=== PATIENT | female | born 1985 | race Caucasian/White ===

== ENCOUNTER 2023-11-04 12:37 | Emergency (ER) | payer OTHER ==
[~2023-11-04] VITALS: Ht 165.1 cm; Wt 75.7 kg
[2023-11-04] MEDS ORDERED: Acetaminophen/Oxycodone 5 MG/325 MG TABLET PO ONE (13:00)
[2023-11-04] MEDS ORDERED: TRAMADOL HCL50 MG PO (13:01)
== END 2023-11-04 13:04 | disposition home or self-care (01) ==
LOC: ED 12:37
DX: K64.4 Residual hemorrhoidal skin tags (principal); Z88.2 Allergy status to sulfonamides; Z88.8 Allergy status to other drugs, medicaments and biological substances

== ENCOUNTER 2023-12-05 19:04 | Emergency (ER) | payer OTHER ==
[~2023-12-05] VITALS: Ht 165.1 cm; Wt 74.8 kg
[~2023-12-05 19:04] MED LIST: TRAMADOL HCL50 MG PO
[2023-12-05] MEDS ORDERED: EFFEXOR XR75 M1 PO (19:15)
[2023-12-05] MEDS ORDERED: BUSPAR15 MG PO (19:16)
[2023-12-05] MEDS ORDERED: PENICILLIN VK500 MG PO (19:40)
== END 2023-12-05 19:45 | disposition home or self-care (01) ==
LOC: ED 19:04
DX: K02.9 Dental caries, unspecified (principal); F32.A Depression, unspecified; F41.9 Anxiety disorder, unspecified; Z88.2 Allergy status to sulfonamides; Z88.8 Allergy status to other drugs, medicaments and biological substances

== ENCOUNTER 2023-12-21 08:39 | Emergency (ER) | payer OTHER ==
[~2023-12-21] VITALS: Ht 165.1 cm; Wt 72.6 kg
[~2023-12-21 08:39] MED LIST changes: +BUSPAR15 MG PO; +EFFEXOR XR75 M1 PO; +PENICILLIN VK500 MG PO
[2023-12-21] MEDS ORDERED: Ketorolac Tromethamine 60 MG/2 ML VIAL IM ONE (08:50)
[2023-12-21] MEDS ORDERED: AMOXICILLIN500 M2 PO (09:15)
[2023-12-21] MEDS ORDERED: MELOXICAM15 MG PO (10:12)
== END 2023-12-21 10:15 | disposition home or self-care (01) ==
LOC: ED 08:39
DX: M25.562 Pain in left knee (principal); F32.A Depression, unspecified; F41.9 Anxiety disorder, unspecified; Z88.2 Allergy status to sulfonamides; Z88.8 Allergy status to other drugs, medicaments and biological substances

== ENCOUNTER 2024-01-05 18:18 | Emergency (ER) | payer OTHER ==
[~2024-01-05] VITALS: Ht 165.1 cm; Wt 74.4 kg
[~2024-01-05 18:18] MED LIST changes: +AMOXICILLIN500 M2 PO; +MELOXICAM15 MG PO
[2024-01-05 19:05] LABS: BILIRUBIN Negative (Negative); BLOOD Negative (Negative); CLARITY Clear (Clear); COLOR Yellow (Yellow); GLUCOSE Negative (Negative); KETONE Negative (Negative); LEUKO ESTERASE Negative (Negative); NITRITE Negative (Negative); PH 5.5 (4.5-8.0); SPECIFIC GRAVITY <= 1.005 (1.001-1.030); UROBILINOGEN 0.2 E.U./dl (0.0-1.0)
[2024-01-05 19:15] LABS: WBC 0-2 wbc/hpf (0-5)
[2024-01-05 19:28] LABS: BASO % 0.7 % (0.0-1.0); EOS % 0.3 % (1.0-4.0); HEMATOCRIT 40.6 % (37.0-47.0); LYMPH # 0.9 10*3/uL (1.3-4.4); LYMPH % 15.5 % (27.0-41.0); MEAN CELL VOLUME 86.6 fl (81.0-99.0); MEAN CORPUSCULAR HGB 30.3 pg (27.0-31.0); MEAN PLATELET VOLUME 9.5 fl (9.6-12.3); MONO # 0.5 10*3/uL (0.1-1.0); MONO % 8.6 % (3.0-9.0); NEUT # 4.5 10*3/uL (2.3-7.9); NEUT % 74.6 % (47.0-73.0); PLATELET COUNT AUTOMATED 209 10*3/uL (130-400); RED BLOOD COUNT 4.69 10*6/uL (4.10-5.10); RED CELL DISTRI WIDTH 12.2 % (0-14.5); WHITE BLOOD COUNT 6.1 10*3/uL (4.8-10.8)
[2024-01-05 19:42] LABS: BUN 11 mg/dl (9-23); CHLORIDE 108 mmol/L (98-107); POTASSIUM 3.4 mmol/L (3.4-5.1)
[2024-01-05] MEDS ORDERED: NYSTATIN OINTMENT 15 GM TUBE T ONE (19:55)
[2024-01-05] MEDS ORDERED: CLOTRIMAZOLE 45 GM TUBE V ONE (19:55)
[2024-01-05] MEDS ORDERED: CLOTRIMAZOLE 321 GM V (19:58)
== END 2024-01-05 20:11 | disposition home or self-care (01) ==
LOC: ED 18:18
PROVIDERS: Nurse Practitioner Family
DX: B37.31 Acute candidiasis of vulva and vagina (principal); Z88.2 Allergy status to sulfonamides; Z88.8 Allergy status to other drugs, medicaments and biological substances; Z88.1 Allergy status to other antibiotic agents; Z79.899 Other long term (current) drug therapy; Z79.2 Long term (current) use of antibiotics

== ENCOUNTER 2024-01-18 13:07 | Emergency (ER) | payer OTHER ==
[~2024-01-18] VITALS: Ht 165.1 cm; Wt 73.0 kg
[~2024-01-18 13:07] MED LIST changes: +CLOTRIMAZOLE 321 GM V
[2024-01-18] MEDS ORDERED: PENICILLIN VK500 MG PO (13:34)
== END 2024-01-18 13:38 | disposition home or self-care (01) ==
LOC: ED 13:07
DX: K08.89 Other specified disorders of teeth and supporting structures (principal); Z88.2 Allergy status to sulfonamides; Z88.8 Allergy status to other drugs, medicaments and biological substances; Z88.1 Allergy status to other antibiotic agents; Z79.899 Other long term (current) drug therapy

== ENCOUNTER 2024-02-04 18:38 | Emergency (ER) | payer OTHER ==
[~2024-02-04] VITALS: Ht 165.1 cm; Wt 73.9 kg
[2024-02-04] MEDS ORDERED: PROAIR RESPICL90 MCG INH (19:15)
[2024-02-04] MEDS ORDERED: FLONASE ALLERG9.9 ML NAS (19:15)
[2024-02-04] MEDS ORDERED: diphenhydrAMINE hydrochloride 50 MG/ML VIAL IV ONE (21:20)
[2024-02-04] MEDS ORDERED: Ketorolac Tromethamine 30 MG/ML VIAL IV ONE (21:20)
[2024-02-04] MEDS ORDERED: Ondansetron Hydrochloride 4 MG/2 ML VIAL IV ONE (21:20)
[2024-02-04] MEDS ORDERED: SODIUM CHLORIDE 0.9% 1,000 ML IV ONE (21:20)
== END 2024-02-04 23:13 | disposition home or self-care (01) ==
LOC: ED 18:38
DX: R51.9 Headache, unspecified (principal); K02.9 Dental caries, unspecified; F32.A Depression, unspecified; F41.9 Anxiety disorder, unspecified; Z88.2 Allergy status to sulfonamides; Z88.8 Allergy status to other drugs, medicaments and biological substances; Z98.890 Other specified postprocedural states

== ENCOUNTER → 2024-02-11 | Emergency (ER) | payer OTHER ==
[~2024-02-11] VITALS: Ht 165.1 cm; Wt 72.6 kg
[~2024-02-11] MED LIST changes: +FLONASE ALLERG9.9 ML NAS; +PROAIR RESPICL90 MCG INH
[2024-02-11 14:38] LABS: BILIRUBIN Negative (Negative); BLOOD Negative (Negative); CLARITY Clear (Clear); COLOR Yellow (Yellow); GLUCOSE Negative (Negative); KETONE Negative (Negative); LEUKO ESTERASE Negative (Negative); NITRITE Negative (Negative); PH 6.5 (4.5-8.0); UROBILINOGEN 0.2 E.U./dl (0.0-1.0)
[2024-02-11 14:48] LABS: RBC 0-2 rbc/hpf (0-2); WBC 0-2 wbc/hpf (0-5)
[2024-02-11 15:40] LABS: BASO # 0.1 10*3/uL (0.0-0.1); EOS % 0.5 % (1.0-4.0); HEMATOCRIT 41.7 % (37.0-47.0); LYMPH # 1.7 10*3/uL (1.3-4.4); MEAN CELL VOLUME 89.5 fl (81.0-99.0); MEAN CORPUSCULAR HGB 30.9 pg (27.0-31.0); MEAN CORPUSCULAR HGB CONC 34.5 g/dl (33.0-37.0); MEAN PLATELET VOLUME 9.6 fl (9.6-12.3); MONO # 0.7 10*3/uL (0.1-1.0); MONO % 12.1 % (3.0-9.0); NEUT # 3.3 10*3/uL (2.3-7.9); NEUT % 56.9 % (47.0-73.0); PLATELET COUNT AUTOMATED 211 10*3/uL (130-400); RED BLOOD COUNT 4.66 10*6/uL (4.10-5.10); RED CELL DISTRI WIDTH 12.2 % (0-14.5); WHITE BLOOD COUNT 5.7 10*3/uL (4.8-10.8)
[2024-02-11 15:58] LABS: ALKALINE PHOSPHATASE 60 U/L (46-116); BUN 15 mg/dl (9-23); CHLORIDE 105 mmol/L (98-107); LIPASE 31 U/L (12-53); POTASSIUM 4.1 mmol/L (3.4-5.1); SGPT/ALT 19 U/L (5-49); TOTAL PROTEIN 6.9 gm/dL (6.0-8.0)
[2024-02-11 15:59] LABS: BETA-HCG, QUANT < 3.0 mIU/mL (3-10)
== END ==
LOC: ED 13:17
PROVIDERS: Internal Medicine; Physician Assistant Medical
DX: R10.9 Unspecified abdominal pain (principal); R30.9 Painful micturition, unspecified; R11.0 Nausea; F32.A Depression, unspecified; F41.9 Anxiety disorder, unspecified; Z88.2 Allergy status to sulfonamides; Z88.8 Allergy status to other drugs, medicaments and biological substances; Z98.890 Other specified postprocedural states

== ENCOUNTER 2024-04-13 21:28 | Emergency (ER) | payer OTHER ==
[2024-04-13] MEDS ORDERED: AZITHROMYCIN 250 MG TAB PO ONE (21:50)
[2024-04-13] MEDS ORDERED: BENZONATATE 100 MG CAP PO ONE (21:50)
[2024-04-13] MEDS ORDERED: BENZONATATE100 M1 PO (21:53)
[2024-04-13] MEDS ORDERED: ZITHROMAX250 MG PO (21:53)
== END 2024-04-13 22:09 | disposition home or self-care (01) ==
LOC: ED 21:28
DX: J98.4 Other disorders of lung (principal); F32.A Depression, unspecified; F41.9 Anxiety disorder, unspecified; Z88.2 Allergy status to sulfonamides; Z88.1 Allergy status to other antibiotic agents; Z88.8 Allergy status to other drugs, medicaments and biological substances; Z98.890 Other specified postprocedural states

== ENCOUNTER 2024-05-16 14:59 | Emergency (ER) | payer OTHER ==
[~2024-05-16] VITALS: Ht 165.1 cm; Wt 75.7 kg
[~2024-05-16 14:59] MED LIST changes: +BENZONATATE100 M1 PO; +ZITHROMAX250 MG PO
[2024-05-16] MEDS ORDERED: VENLAFAXINE HY150 M2 PO (15:15)
[2024-05-16 16:34] LABS: BASO % 0.3 % (0.0-1.0); EOS # 0.1 10*3/uL (0.0-0.4); EOS % 1.4 % (1.0-4.0); HEMATOCRIT 39.4 % (37.0-47.0); LYMPH # 1.3 10*3/uL (1.3-4.4); LYMPH % 22.8 % (27.0-41.0); MEAN CELL VOLUME 86.6 fl (81.0-99.0); MEAN CORPUSCULAR HGB 30.1 pg (27.0-31.0); MEAN CORPUSCULAR HGB CONC 34.8 g/dl (33.0-37.0); MEAN PLATELET VOLUME 9.7 fl (9.6-12.3); MONO # 0.5 10*3/uL (0.1-1.0); MONO % 8.9 % (3.0-9.0); NEUT # 3.9 10*3/uL (2.3-7.9); NEUT % 66.3 % (47.0-73.0); PLATELET COUNT AUTOMATED 212 10*3/uL (130-400); RED BLOOD COUNT 4.55 10*6/uL (4.10-5.10); RED CELL DISTRI WIDTH 11.9 % (0-14.5); WHITE BLOOD COUNT 5.8 10*3/uL (4.8-10.8)
[2024-05-16 16:55] LABS: ALKALINE PHOSPHATASE 69 U/L (46-116); BUN 12 mg/dl (9-23); CHLORIDE 106 mmol/L (98-107); LIPASE 36 U/L (12-53); POTASSIUM 3.9 mmol/L (3.4-5.1); SGPT/ALT 20 U/L (5-49); TOTAL PROTEIN 6.8 gm/dL (6.0-8.0)
[2024-05-16 17:32] LABS: BILIRUBIN Negative (Negative); BLOOD Negative (Negative); CLARITY Clear (Clear); COLOR Yellow (Yellow); GLUCOSE Negative (Negative); KETONE Negative (Negative); LEUKO ESTERASE Negative (Negative); NITRITE Negative (Negative); PH 7.5 (4.5-8.0); SPECIFIC GRAVITY 1.015 (1.001-1.030); UROBILINOGEN 0.2 E.U./dl (0.0-1.0)
[2024-05-16 17:46] LABS: BACTERIA TRACE
[2024-05-16 17:47] LABS: RBC 0-2 rbc/hpf (0-2); WBC 0-2 wbc/hpf (0-5)
[2024-05-16] MEDS ORDERED: Ketorolac Tromethamine 60 MG/2 ML VIAL IM ONE (18:25)
== END 2024-05-16 18:30 | disposition home or self-care (01) ==
LOC: ED 14:59
PROVIDERS: Nurse Practitioner Family
DX: K82.9 Disease of gallbladder, unspecified (principal); R11.0 Nausea; F32.A Depression, unspecified; F41.9 Anxiety disorder, unspecified; Z88.2 Allergy status to sulfonamides; Z88.1 Allergy status to other antibiotic agents; Z88.8 Allergy status to other drugs, medicaments and biological substances; Z98.890 Other specified postprocedural states

== ENCOUNTER 2024-06-27 18:25 | Emergency (ER) | payer OTHER ==
[~2024-06-27] VITALS: Ht 165.1 cm; Wt 81.2 kg
[~2024-06-27 18:25] MED LIST changes: +VENLAFAXINE HY150 M2 PO
[2024-06-27] MEDS ORDERED: Amoxicillin/Clavulanate Pota 875 MG TAB PO ONE (18:40)
[2024-06-27] MEDS ORDERED: AMOX-CLAV 875-1 EACH PO (18:42)
== END 2024-06-27 18:44 | disposition home or self-care (01) ==
LOC: ED 18:25
DX: K04.7 Periapical abscess without sinus (principal); R22.0 Localized swelling, mass and lump, head; F32.A Depression, unspecified; F41.9 Anxiety disorder, unspecified; Z88.2 Allergy status to sulfonamides; Z88.1 Allergy status to other antibiotic agents; Z88.8 Allergy status to other drugs, medicaments and biological substances

== ENCOUNTER 2024-07-11 05:31 | Emergency (ER) | payer OTHER ==
[~2024-07-11] VITALS: Ht 165.1 cm; Wt 81.6 kg
[~2024-07-11 05:31] MED LIST changes: +AMOX-CLAV 875-1 EACH PO
[2024-07-11 06:39] LABS: BASO # 0.1 10*3/uL (0.0-0.1); EOS # 0.1 10*3/uL (0.0-0.4); EOS % 1.8 % (1.0-4.0); HEMATOCRIT 42.5 % (37.0-47.0); MEAN CELL VOLUME 87.8 fl (81.0-99.0); MEAN CORPUSCULAR HGB 30.2 pg (27.0-31.0); MEAN CORPUSCULAR HGB CONC 34.4 g/dl (33.0-37.0); MEAN PLATELET VOLUME 9.7 fl (9.6-12.3); MONO # 0.5 10*3/uL (0.1-1.0); MONO % 10.1 % (3.0-9.0); NEUT # 2.8 10*3/uL (2.3-7.9); NEUT % 56.1 % (47.0-73.0); PLATELET COUNT AUTOMATED 222 10*3/uL (130-400); RED BLOOD COUNT 4.84 10*6/uL (4.10-5.10); RED CELL DISTRI WIDTH 11.9 % (0-14.5); WHITE BLOOD COUNT 5.1 10*3/uL (4.8-10.8)
[2024-07-11 06:53] LABS: BUN 17 mg/dl (9-23); CHLORIDE 106 mmol/L (98-107)
== END 2024-07-11 07:09 | disposition home or self-care (01) ==
LOC: ED 05:31
PROVIDERS: Emergency Medicine
DX: F41.9 Anxiety disorder, unspecified (principal); R42 Dizziness and giddiness; F32.A Depression, unspecified; Z88.2 Allergy status to sulfonamides; Z88.1 Allergy status to other antibiotic agents; Z88.8 Allergy status to other drugs, medicaments and biological substances

== ENCOUNTER 2024-11-16 16:01 | Emergency (ER) | payer OTHER ==
[~2024-11-16] VITALS: Ht 165.1 cm; Wt 84.4 kg
[2024-11-16 16:55] LABS: BASO # 0.1 10*3/uL (0.0-0.1); BASO % 0.7 % (0.0-1.0); EOS # 0.1 10*3/uL (0.0-0.4); EOS % 1.6 % (1.0-4.0); HEMATOCRIT 41.3 % (37.0-47.0); MEAN CELL VOLUME 85.7 fl (81.0-99.0); MEAN CORPUSCULAR HGB 29.5 pg (27.0-31.0); MEAN CORPUSCULAR HGB CONC 34.4 g/dl (33.0-37.0); MONO # 0.6 10*3/uL (0.1-1.0); MONO % 8.6 % (3.0-9.0); NEUT # 4.9 10*3/uL (2.3-7.9); NEUT % 69.8 % (47.0-73.0); PLATELET COUNT AUTOMATED 218 10*3/uL (130-400); RED BLOOD COUNT 4.82 10*6/uL (4.10-5.10); RED CELL DISTRI WIDTH 12.6 % (0-14.5)
[2024-11-16 17:14] LABS: BUN 18 mg/dl (9-23); CHLORIDE 105 mmol/L (98-107)
[2024-11-16] MEDS ORDERED: BROMFED DM COU118 M2 PO (18:27)
[2024-11-16] MEDS ORDERED: VIBRAMYCIN100 MG PO (18:27)
[2024-11-16] MEDS ORDERED: Doxycycline Hyclate 100 MG TAB PO ONE (18:30)
== END 2024-11-16 18:37 | disposition home or self-care (01) ==
LOC: ED 16:01
PROVIDERS: Nurse Practitioner Family
DX: J98.4 Other disorders of lung (principal); Z20.822 Contact with and (suspected) exposure to COVID-19; Z88.2 Allergy status to sulfonamides; Z88.8 Allergy status to other drugs, medicaments and biological substances; Z88.1 Allergy status to other antibiotic agents; Z79.899 Other long term (current) drug therapy

== ENCOUNTER 2025-03-06 06:31 | Emergency (ER) | payer OTHER ==
[~2025-03-06 06:31] MED LIST changes: +BROMFED DM COU118 M2 PO; +VIBRAMYCIN100 MG PO
[2025-03-06] MEDS ORDERED: Venlafaxine Hydrochloride 75 MG CAP PO ONE (06:55)
== END 2025-03-06 07:07 | disposition home or self-care (01) ==
LOC: ED 06:31
DX: F41.9 Anxiety disorder, unspecified (principal); Z76.0 Encounter for issue of repeat prescription; Z88.2 Allergy status to sulfonamides; Z88.8 Allergy status to other drugs, medicaments and biological substances; Z88.1 Allergy status to other antibiotic agents; Z79.899 Other long term (current) drug therapy

== ENCOUNTER 2025-03-08 11:14 | Emergency (ER) | payer OTHER ==
[~2025-03-08] VITALS: Ht 165.1 cm; Wt 72.6 kg
[2025-03-08] MEDS ORDERED: Albuterol Sulf/Ipratropium 3 ML VIAL NEB ONE (11:40)
[2025-03-08] MEDS ORDERED: AMOX-CLAV 875-1 EACH PO (13:48)
[2025-03-08] MEDS ORDERED: SINGULAIR10 M1 PO (13:48)
[2025-03-08] MEDS ORDERED: BENZONATATE150 MG PO (13:51)
== END 2025-03-08 13:55 | disposition home or self-care (01) ==
LOC: ED 11:14
DX: J45.909 Unspecified asthma, uncomplicated (principal); F41.9 Anxiety disorder, unspecified; F32.A Depression, unspecified; G89.29 Other chronic pain; Z88.2 Allergy status to sulfonamides; Z88.8 Allergy status to other drugs, medicaments and biological substances; Z88.1 Allergy status to other antibiotic agents; Z79.899 Other long term (current) drug therapy

== ENCOUNTER 2025-04-26 11:57 | Emergency (ER) | payer OTHER ==
[~2025-04-26] VITALS: Ht 165.1 cm; Wt 77.1 kg
[~2025-04-26 11:57] MED LIST changes: +BENZONATATE150 MG PO; +SINGULAIR10 M1 PO
[2025-04-26] MEDS ORDERED: Ondansetron Hydrochloride 4 MG/2 ML VIAL IV ONE (12:20)
[2025-04-26] MEDS ORDERED: SODIUM CHLORIDE 0.9% 500 ML IV ONE (12:20)
[2025-04-26 12:49] LABS: BASO # 0.0 10*3/uL (0.0-0.1); BASO % 0.7 % (0.0-1.0); EOS # 0.1 10*3/uL (0.0-0.4); EOS % 2.3 % (1.0-4.0); MEAN CELL VOLUME 86.3 fl (81.0-99.0); MEAN CORPUSCULAR HGB 29.1 pg (27.0-31.0); MEAN PLATELET VOLUME 9.9 fl (9.6-12.3); MONO # 0.5 10*3/uL (0.1-1.0); MONO % 12.0 % (3.0-9.0); NEUT # 2.7 10*3/uL (2.3-7.9); NEUT % 60.6 % (47.0-73.0); NUCLEATED RED BLOOD CELL 0.0 % (0.0-0.0); NUCLEATED RED BLOOD CELL 0.0 10*3/uL (0.0-0.0); PLATELET COUNT AUTOMATED 208 10*3/uL (130-400); RED CELL DISTRI WIDTH 12.6 % (0-14.5)
[2025-04-26 13:10] LABS: BUN 16 mg/dl (9-23); SGPT/ALT 27 U/L (5-49)
[2025-04-26 13:22] LABS: BILIRUBIN Negative (Negative); BLOOD 3+ (Negative); CLARITY Clear (Clear); COLOR Yellow (Yellow); KETONE Negative (Negative); LEUKO ESTERASE Negative (Negative); NITRITE Negative (Negative); PH 6.0 (4.5-8.0); SPECIFIC GRAVITY 1.025 (1.001-1.030); UROBILINOGEN 0.2 E.U./dl (0.0-1.0)
[2025-04-26 13:31] LABS: BACTERIA TRACE; MUCOUS TRACE; RBC 51-100 rbc/hpf (0-2); WBC 0-2 wbc/hpf (0-5)
[2025-04-26] MEDS ORDERED: Ondansetron4 MG PO (14:36)
[2025-04-26] MEDS ORDERED: FLOMAX0.4 MG PO (14:36)
[2025-04-26] MEDS ORDERED: PERCOCET 5-3251 EACH PO (14:36)
== END 2025-04-26 14:48 | disposition home or self-care (01) ==
LOC: ED 11:57
PROVIDERS: Emergency Medicine
DX: N20.1 Calculus of ureter (principal); R10.12 Left upper quadrant pain; R11.0 Nausea; Z88.2 Allergy status to sulfonamides; Z88.8 Allergy status to other drugs, medicaments and biological substances; Z88.1 Allergy status to other antibiotic agents; Z79.899 Other long term (current) drug therapy

== ENCOUNTER 2025-05-31 16:43 | Emergency (ER) | payer OTHER ==
[~2025-05-31] VITALS: Ht 165.1 cm; Wt 81.6 kg
[~2025-05-31 16:43] MED LIST changes: +FLOMAX0.4 MG PO; +Ondansetron4 MG PO; +PERCOCET 5-3251 EACH PO
[2025-05-31] MEDS ORDERED: SODIUM CHLORIDE 0.9% 1,000 ML IV ONE (16:55)
[2025-05-31] MEDS ORDERED: Midazolam Hydrochloride 2 MG/2 ML VIAL IV ONE (17:00)
[2025-05-31] MEDS ORDERED: FAMOTIDINE 50 ML IV ONE (17:00)
[2025-05-31 17:10] LABS: BASO # 0.1 10*3/uL (0.0-0.1); BASO % 0.9 % (0.0-1.0); EOS # 0.1 10*3/uL (0.0-0.4); EOS % 1.7 % (1.0-4.0); MEAN CELL VOLUME 85.8 fl (81.0-99.0); MEAN CORPUSCULAR HGB 29.0 pg (27.0-31.0); MEAN PLATELET VOLUME 10.1 fl (9.6-12.3); MONO # 0.6 10*3/uL (0.1-1.0); MONO % 8.9 % (3.0-9.0); NEUT # 4.4 10*3/uL (2.3-7.9); NEUT % 61.9 % (47.0-73.0); NUCLEATED RED BLOOD CELL 0.0 % (0.0-0.0); NUCLEATED RED BLOOD CELL 0.0 10*3/uL (0.0-0.0); PLATELET COUNT AUTOMATED 230 10*3/uL (130-400); RED CELL DISTRI WIDTH 11.9 % (0-14.5)
[2025-05-31 17:21] LABS: ACT PARTIAL THROMBO TIME 26.1 SECONDS (20.0-32.1)
[2025-05-31 18:25] LABS: BUN 11 mg/dl (9-23)
[2025-05-31 18:36] LABS: ETHYL ALCOHOL < 3.0 mg/dl (<3)
[2025-05-31 19:27] LABS: BILIRUBIN Negative (Negative); BLOOD Negative (Negative); CLARITY Clear (Clear); COLOR Yellow (Yellow); KETONE Negative (Negative); LEUKO ESTERASE Negative (Negative); NITRITE Negative (Negative); PH 7.5 (4.5-8.0); SPECIFIC GRAVITY <= 1.005 (1.001-1.030); UROBILINOGEN 0.2 E.U./dl (0.0-1.0)
[2025-05-31 19:34] LABS: URINE AMPHETAMINES Negative (1000ng/ml); URINE BARBITURATES Negative (200ng/ml); URINE BENZODIAZEPINES Positive (200ng/ml); URINE CANNABINOIDS (THC) Negative (50ng/ml); URINE COCAINE Negative (300ng/ml); URINE METHADONE Negative (300ng/ml); URINE OPIATES Negative (300ng/ml); URINE PHENCYCLIDINE Negative (25ng/ml)
[2025-05-31 19:40] LABS: EPITHELIAL CELLS 0-2; WBC 0-2 wbc/hpf (0-5)
== END 2025-05-31 22:42 | disposition home or self-care (01) ==
LOC: ED 16:43
PROVIDERS: Internal Medicine
DX: K82.8 Other specified diseases of gallbladder (principal); K21.9 Gastro-esophageal reflux disease without esophagitis; Z88.2 Allergy status to sulfonamides; Z88.8 Allergy status to other drugs, medicaments and biological substances; Z88.1 Allergy status to other antibiotic agents; Z79.899 Other long term (current) drug therapy

== ENCOUNTER 2025-06-10 07:08 | Emergency (ER) | payer OTHER ==
[~2025-06-10] VITALS: Ht 170.1 cm; Wt 83.0 kg
[2025-06-10] MEDS ORDERED: DOXYCYCLINE HY100 M3 PO (07:13)
[2025-06-10] MEDS ORDERED: IBUPROFEN 800 MG TAB PO ONE (07:20)
[2025-06-10] MEDS ORDERED: MELOXICAM15 MG PO (07:58)
[2025-06-10] MEDS ORDERED: CYCLOBENZAPRINE10 MG PO (07:58)
== END 2025-06-10 08:06 | disposition home or self-care (01) ==
LOC: ED 07:08
DX: S09.90XA Unspecified injury of head, initial encounter (principal); M54.50 Low back pain, unspecified; F41.9 Anxiety disorder, unspecified; F32.A Depression, unspecified; M79.7 Fibromyalgia; Z88.2 Allergy status to sulfonamides; Z88.1 Allergy status to other antibiotic agents; V49.9XXA Car occupant (driver) (passenger) injured in unspecified traffic accident, initial encounter; Y93.89 Activity, other specified; Y92.410 Unspecified street and highway as the place of occurrence of the external cause; Y99.8 Other external cause status

== ENCOUNTER 2025-07-16 05:03 | Emergency (ER) | payer OTHER ==
[~2025-07-16] VITALS: Ht 165.1 cm; Wt 84.8 kg
[~2025-07-16 05:03] MED LIST changes: +CYCLOBENZAPRINE10 MG PO; +DOXYCYCLINE HY100 M3 PO
[2025-07-16] MEDS ORDERED: Dexamethasone Sodium Phospha 4 MG/ML VIAL IM ONE (05:50)
[2025-07-16] MEDS ORDERED: Ondansetron Hydrochloride 4 MG TAB SL ONE (05:50)
[2025-07-16] MEDS ORDERED: Cyclobenzaprine Hydrochlorid 10 MG TAB PO ONE (05:50)
[2025-07-16] MEDS ORDERED: CYCLOBENZAPRINE10 MG PO (07:00)
== END 2025-07-16 07:06 | disposition home or self-care (01) ==
LOC: ED 05:03
DX: M54.42 Lumbago with sciatica, left side (principal); F41.9 Anxiety disorder, unspecified; Z88.2 Allergy status to sulfonamides; Z88.8 Allergy status to other drugs, medicaments and biological substances; Z88.1 Allergy status to other antibiotic agents; Z79.899 Other long term (current) drug therapy

== ENCOUNTER 2025-08-18 10:11 | Emergency (ER) | payer OTHER ==
[2025-08-18] MEDS ORDERED: Ondansetron Hydrochloride 4 MG/2 ML VIAL IV ONE (10:35)
[2025-08-18 10:54] LABS: BASO # 0.0 10*3/uL (0.0-0.1); BASO % 0.7 % (0.0-1.0); EOS # 0.1 10*3/uL (0.0-0.4); EOS % 2.4 % (1.0-4.0); MEAN CELL VOLUME 85.6 fl (81.0-99.0); MEAN CORPUSCULAR HGB 29.7 pg (27.0-31.0); MEAN PLATELET VOLUME 9.6 fl (9.6-12.3); MONO # 0.3 10*3/uL (0.1-1.0); MONO % 7.6 % (3.0-9.0); NEUT # 2.8 10*3/uL (2.3-7.9); NEUT % 66.1 % (47.0-73.0); NUCLEATED RED BLOOD CELL 0.0 % (0.0-0.0); NUCLEATED RED BLOOD CELL 0.0 10*3/uL (0.0-0.0); PLATELET COUNT AUTOMATED 193 10*3/uL (130-400); RED CELL DISTRI WIDTH 12.0 % (0-14.5)
[2025-08-18 11:20] LABS: BUN 12 mg/dl (9-23); SGPT/ALT 19 U/L (5-49)
[2025-08-18 11:30] LABS: BILIRUBIN Negative (Negative); BLOOD 2+ (Negative); CLARITY Clear (Clear); COLOR Yellow (Yellow); KETONE Negative (Negative); LEUKO ESTERASE Negative (Negative); NITRITE Negative (Negative); PH 7.0 (4.5-8.0); SPECIFIC GRAVITY 1.020 (1.001-1.030); UROBILINOGEN 0.2 E.U./dl (0.0-1.0)
[2025-08-18] MEDS ORDERED: VENT7GM INH (11:35)
[2025-08-18 11:40] LABS: BACTERIA 1+; EPITHELIAL CELLS 21-30; MUCOUS TRACE; WBC 0-2 wbc/hpf (0-5)
[2025-08-18] MEDS ORDERED: MIRALAX POWDER17 G1 PO (12:22)
[2025-08-18] MEDS ORDERED: COLACE100 MG PO (12:22)
== END 2025-08-18 12:31 | disposition home or self-care (01) ==
LOC: ED 10:11
PROVIDERS: Emergency Medicine
DX: R07.89 Other chest pain (principal); R05.9 Cough, unspecified; R10.11 Right upper quadrant pain; R10.13 Epigastric pain; M25.511 Pain in right shoulder; K59.00 Constipation, unspecified; Z88.2 Allergy status to sulfonamides; Z88.8 Allergy status to other drugs, medicaments and biological substances; Z88.1 Allergy status to other antibiotic agents; Z79.899 Other long term (current) drug therapy